=== PATIENT | female | born 1980 | race Asian ===

== ENCOUNTER 2016-11-19 17:00 | Emergency (ER) | payer OTHER ==
[~2016-11-19] VITALS: Ht 167.6 cm; Wt 74.4 kg
[~2016-11-19 17:00] MED LIST: IBUP600T OR; VICO5TAB OR
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
[2016-11-19] MEDS ORDERED: IBUP600T26 PO (19:13)
[2016-11-19] MEDS ORDERED: CYCL10TA PO (19:13)
[2016-11-19 19:20] VITALS: BP 173/96
== END 2016-11-19 19:35 | disposition home or self-care (01) ==
LOC: M ED 18:29
DX: S13.4XXA Sprain of ligaments of cervical spine, initial encounter (principal); V49.40XA Driver injured in collision with unspecified motor vehicles in traffic accident, initial encounter; Y92.89 Other specified places as the place of occurrence of the external cause; F17.200 Nicotine dependence, unspecified, uncomplicated

== ENCOUNTER 2016-12-04 12:46 | Emergency (ER) | payer OTHER ==
[~2016-12-04] VITALS: Ht 167.6 cm; Wt 73.5 kg
[~2016-12-04 12:46] MED LIST changes: +CYCL10TA PO; +IBUP600T26 PO
[2016-12-04 12:47] VITALS: BP 162/97
[2016-12-04] MEDS ORDERED: METHOCARBAMOL 500 MG TAB PO ONE (14:00)
[2016-12-04] MEDS ORDERED: IBUPROFEN 800 MG TAB PO ONE (14:00)
[2016-12-04] MEDS ORDERED: ROBA500T PO (14:03)
[2016-12-04] MEDS ORDERED: NORCOTAB PO (14:03)
== END 2016-12-04 14:54 | disposition home or self-care (01) ==
LOC: M ED 13:34
DX: S13.4XXA Sprain of ligaments of cervical spine, initial encounter (principal); V49.40XA Driver injured in collision with unspecified motor vehicles in traffic accident, initial encounter; Y92.410 Unspecified street and highway as the place of occurrence of the external cause; Y93.89 Activity, other specified; Y99.9 Unspecified external cause status

== ENCOUNTER → 2017-01-14 | Outpatient (CLI) | payer OTHER ==
[~2017-01-14] MED LIST changes: +NORCOTAB PO; +ROBA500T PO
--- NOTE | 2017-01-14 18:23 | REP ---
MR CERVICAL SPINE WITHOUT CONTRAST: HISTORY: Neck pain. A small central disc protrusion is present at the C3-4 level. There is minimal effacement of the thecal sac without spinal cord compression. The C3 neural foramina are patent. A small central disc protrusion is present the C4-5 level. There is minimal effacement of the thecal sac without spinal cord compression. The C4 neural foramina are patent. A disc bulge is present at the C5-6 level. There is minimal effacement of the thecal sac without spinal cord compression. The C5 neural foramina are patent. A disc bulge is present at the C6-7 level. There is minimal effacement of the thecal sac without spinal cord compression. The C6 neural foramina are patent. There is no other disc bulge or herniation. The remaining neural foramina are patent. The spinal cord is normal in signal intensity. Normal signal intensity is present in the cervical vertebral bodies. IMPRESSION: There is cervical spondylosis at the C3-4 through C6-7 levels without spinal cord compression. Signed by Jose Weldon MD 01/14/2017 06:31 P
== END ==
LOC: M RAD 16:03
PROVIDERS: ATTEND Nurse Practitioner Family
DX: M47.812 Spondylosis without myelopathy or radiculopathy, cervical region (principal); R20.2 Paresthesia of skin; M54.2 Cervicalgia

== ENCOUNTER 2017-02-10 12:59 | Emergency (ER) | payer OTHER ==
[~2017-02-10] VITALS: Ht 167.6 cm; Wt 74.8 kg
[2017-02-10 12:59] VITALS: BP 153/95
[2017-02-10] MEDS ORDERED: KETOROLAC 30 MG/ML VIAL (J1885) IV ONE (13:45)
[2017-02-10] MEDS ORDERED: ONDANSETRON 4MG/2ML VIAL (J2405) IV ONE (13:45)
[2017-02-10] MEDS ORDERED: NS 1,000 ML IV ONE (13:45)
--- NOTE | 2017-02-10 14:12 | REP ---
Clinical: Left flank pain. Findings: Lung bases are clear. Visualized heart and pericardium are normal. Liver, spleen, pancreas, gallbladder, bilateral adrenal glands and kidneys are normal. Specifically, there is no perinephric stranding, hydroureteronephrosis, intrarenal or obstructing ureteral calculi. The enteric system is without obstruction or acute inflammatory process. Normal terminal ileum and appendix identified in the right lower quadrant. Pelvis demonstrates collapsed bladder and age-appropriate uterus/adnexa. Small amount of free fluid is likely physiologic. No significant ascites. No free air. No obvious adenopathy. Musculoskeletal structures are intact. Impression: Normal noncontrast CT of the abdomen and pelvis. Signed by Vini Godfrey MD 02/10/2017 02:04 P
[2017-02-10 14:22] LABS: BASO % 0.4 % (0.0-1.0); EOS # 0.1 K/mm3 (0.0-0.50); EOS % 1.6 % (0.0-3.0); LARGE UNSTAINED CELL # 0.1 K/mm3 (0.0-0.4); LARGE UNSTAINED CELL % 2.6 % (0.0-4.0); LYMPH # 2.5 K/mm3 (1.5-4.5); LYMPH % 47.5 % (24.0-44.0); MEAN CORPUSCULAR HEMOGLOBIN 34.2 pg (27.0-33.0); MEAN CORPUSCULAR HGB CONC 33.1 g/dl (32.0-36.5); MEAN CORPUSCULAR VOLUME 103.3 fl (80.0-96.0); MONO # 0.2 K/mm3 (0.0-0.8); MONO % 3.9 % (0.0-5.0); NEUTROPHILS # 2.3 K/mm3 (1.8-7.7); PLATELET COUNT, AUTOMATED 250 k/mm3 (150-450); RED CELL DISTRIBUTION WIDTH 13.7 % (11.5-14.5); WHITE BLOOD COUNT 5.2 K/mm3 (4.0-10.0)
[2017-02-10 14:37] LABS: ALBUMIN 3.7 GM/DL (3.2-5.2); ALBUMIN/GLOBULIN RATIO 0.95 (1.00-1.93); ALKALINE PHOSPHATASE 58 U/L (45-117); ALT/SGPT 23 U/L (12-78); AMYLASE 71 U/L (25-115); ANION GAP 3 MEQ/L (8-16); AST/SGOT 12 U/L (15-37); BILIRUBIN,DIRECT < 0.1 MG/DL (0.0-0.2); BILIRUBIN,TOTAL 0.3 MG/DL (0.2-1.0); BLOOD UREA NITROGEN 8 MG/DL (7-18); CALCIUM LEVEL 8.7 MG/DL (8.5-10.1); CARBON DIOXIDE LEVEL 31 MEQ/L (21-32); CHLORIDE LEVEL 104 MEQ/L (98-107); CREATININE FOR GFR 0.74 MG/DL (0.55-1.02); GLOMERULAR FILTRATION RATE > 60.0 (>60); GLUCOSE, FASTING 75 MG/DL (70-105); POTASSIUM SERUM 3.3 MEQ/L (3.5-5.1); SODIUM LEVEL 138 MEQ/L (136-145); TOTAL PROTEIN 7.6 GM/DL (6.4-8.2)
[2017-02-10] MEDS ORDERED: NAPR500T PO (14:53)
[2017-02-10] MEDS ORDERED: ZOFR4TAB3 PO (14:53)
== END 2017-02-10 15:16 | disposition home or self-care (01) ==
LOC: M ED 13:39
DX: N20.1 Calculus of ureter (principal); F17.210 Nicotine dependence, cigarettes, uncomplicated

== ENCOUNTER → 2017-06-02 | Outpatient (REF) | payer OTHER ==
[~2017-06-02] MED LIST changes: +AUGM875T28 PO; +EXCETAB81 PO; +IBUP-1022 PO; -IBUP600T26 PO; +NAPR500T PO; +ZOFR4TAB3 PO
== END ==
LOC: M SFHCWAGY 15:47
PROVIDERS: ATTEND Nurse Practitioner Family
DX: Z12.4 Encounter for screening for malignant neoplasm of cervix (principal)

== ENCOUNTER → 2017-06-02 | Outpatient (REF) | payer OTHER | LOC: M SFHCWAGY 15:00 | PROVIDERS: ATTEND Nurse Practitioner Family | DX: Z11.3 Encounter for screening for infections with a predominantly sexual mode of transmission (principal) ==

== ENCOUNTER → 2017-07-12 | Outpatient (CLI) | payer OTHER ==
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
== END ==
LOC: M PAIN 10:15
PROVIDERS: ATTEND Nurse Practitioner Family
DX: G89.29 Other chronic pain (principal); M54.2 Cervicalgia; M79.1 Myalgia; F17.210 Nicotine dependence, cigarettes, uncomplicated; Z79.899 Other long term (current) drug therapy

== ENCOUNTER 2017-07-19 09:29 | Emergency (ER) | payer MEDICAID, OTHER ==
[2017-07-19] MEDS: KETOROLAC 60 MG/2 ML VIAL (J1885) IM (10:05)
[2017-07-19] MEDS: AUGMENTIN 875 MG TAB PO (10:53)
== END 2017-07-19 10:58 | disposition home or self-care (01) ==
LOC: M ED 09:29
DX: J01.10 Acute frontal sinusitis, unspecified (principal)
CPT/HCPCS: J1885

== ENCOUNTER → 2017-08-15 | Outpatient (CLI) | payer OTHER ==
[~2017-08-15] MED LIST changes: +BUPIVACAINE HCL 0.25% 10 ML VIAL As Ordered ONE; +BUPIVACAINE HCL 0.25% 30 ML VIAL As Ordered ONE; +TRIAMCINOLONE ACETONIDE SUSP 40 MG/ML VIAL (J3301) As Ordered ONE; +diazePAM 5 MG TAB As Ordered ONE; +oxyCODONE 5MG TAB As Ordered ONE
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
== END ==
LOC: M PAIN 15:00
PROVIDERS: ATTEND Anesthesiology
DX: G89.29 Other chronic pain (principal); M79.1 Myalgia; F17.210 Nicotine dependence, cigarettes, uncomplicated; Z79.899 Other long term (current) drug therapy
CPT/HCPCS: 20552; J3301

== ENCOUNTER → 2017-09-14 | Outpatient (CLI) | payer OTHER | LOC: M PAIN 14:45 | DX: M54.2 Cervicalgia (principal); M79.1 Myalgia | CPT/HCPCS: G0463 ==

== ENCOUNTER → 2017-10-05 | Outpatient (CLI) | payer OTHER ==
[~2017-10-05] MED LIST changes: -AUGM875T28 PO; +BUPIVACAINE HCL 0.25% 10 ML VIAL As Ordered; -BUPIVACAINE HCL 0.25% 10 ML VIAL As Ordered ONE; +BUPIVACAINE HCL 0.25% 30 ML VIAL As Ordered; -BUPIVACAINE HCL 0.25% 30 ML VIAL As Ordered ONE; -CYCL10TA PO; -EXCETAB81 PO; -IBUP-1022 PO; -IBUP600T OR; -NAPR500T PO; -NORCOTAB PO; -ROBA500T PO; +TRIAMCINOLONE ACETONIDE SUSP 40 MG/ML VIAL (J3301) As Ordered; -TRIAMCINOLONE ACETONIDE SUSP 40 MG/ML VIAL (J3301) As Ordered ONE; -VICO5TAB OR; -ZOFR4TAB3 PO; +diazePAM 5 MG TAB As Ordered; -diazePAM 5 MG TAB As Ordered ONE; +oxyCODONE 5MG TAB As Ordered; -oxyCODONE 5MG TAB As Ordered ONE
== END ==
LOC: M PAIN 15:00
DX: M54.2 Cervicalgia (principal); G89.29 Other chronic pain (principal); M54.6 Pain in thoracic spine; M25.511 Pain in right shoulder; M79.1 Myalgia; D57.3 Sickle-cell trait; F17.210 Nicotine dependence, cigarettes, uncomplicated; Z88.8 Allergy status to other drugs, medicaments and biological substances
CPT/HCPCS: J3301

== ENCOUNTER → 2017-10-21 | Outpatient (CLI) | payer OTHER | LOC: M PAIN 13:45 | DX: M54.2 Cervicalgia (principal); M79.1 Myalgia; G89.29 Other chronic pain; D50.9 Iron deficiency anemia, unspecified; D57.3 Sickle-cell trait; F17.210 Nicotine dependence, cigarettes, uncomplicated; Z88.8 Allergy status to other drugs, medicaments and biological substances | CPT/HCPCS: G0463 ==

== ENCOUNTER 2017-11-23 07:51 | Day surgery (SDC) | payer OTHER ==
[2017-11-23] MEDS ORDERED: LIDOCAINE 1% MDV 20ML VIAL SQ (08:00)
[2017-11-23] MEDS ORDERED: dexameTHASONE 4 MG/ML 1ML VIAL (J1100) As Ordered (08:54)
[2017-11-23] MEDS ORDERED: PROPOFOL 200 MG/20 ML VIAL As Ordered (08:54)
[2017-11-23] MEDS ORDERED: ONDANSETRON 4MG/2ML VIAL (J2405) As Ordered (08:54)
[2017-11-23] MEDS ORDERED: LIDOCAINE 2% INJ 100 MG/5 ML SDV (FOR ANES.) As Ordered (08:54)
[2017-11-23] MEDS ORDERED: MIDAZOLAM INJ 2 MG/2 ML VIAL (J2250) As Ordered (08:55)
[2017-11-23] MEDS ORDERED: fentaNYL 100 MCG/2 ML INJECTION (J3010) As Ordered (08:55)
[2017-11-23] MEDS: LR 1,000 ML IV (09:05)
[2017-11-23 09:13] LABS: CONTROL LINE UCG INT CTR LINE PRESENT; URINE PREG TEST NEGATIVE (NEGATIVE)
[2017-11-23] MEDS: BUPIVACAINE HCL 0.5% 10 ML VIAL As Ordered ×2 (09:29→09:57)
[2017-11-23] MEDS: LIDOCAINE 1% MDV 20ML VIAL As Ordered ×2 (09:57→10:05)
[2017-11-23] MEDS ORDERED: PHENYLephrine HCL 500 MCG/5 ML (100MCG/ML) SYRINGE (J2370) As Ordered (10:39)
[2017-11-23] MEDS: dexameTHASONE 4 MG/ML 1ML VIAL (J1100) As Ordered (11:38)
[2017-11-23] MEDS ORDERED: MEPERIDINE INJ 25 MG/ML VIAL (J2175) As Ordered (11:52)
[2017-11-23] MEDS: MEPERIDINE INJ 25 MG/ML VIAL (J2175) IV ×2 (11:58→12:08)
[2017-11-23] MEDS ORDERED: HYDROmorphone HCL 1 MG/ML SYRINGE (J1170) As Ordered (12:13)
[2017-11-23] MEDS: HYDROmorphone HCL 1 MG/ML SYRINGE (J1170) IV ×3 (12:20→12:50)
[2017-11-23] MEDS ORDERED: fentaNYL 100 MCG/2 ML INJECTION (J3010) IV (12:30)
[2017-11-23] MEDS ORDERED: ONDANSETRON 4MG/2ML VIAL (J2405) IV (12:30)
[2017-11-23] MEDS ORDERED: LR 1,000 ML IV (12:30)
== END 2017-11-23 14:34 | disposition home or self-care (01) ==
LOC: M SDC 07:51
DX: M21.621 Bunionette of right foot (principal); M21.622 Bunionette of left foot; M20.41 Other hammer toe(s) (acquired), right foot; L90.5 Scar conditions and fibrosis of skin; M54.2 Cervicalgia; R51 Headache; T84.84XA Pain due to internal orthopedic prosthetic devices, implants and grafts, initial encounter; X58.XXXA Exposure to other specified factors, initial encounter; Y92.89 Other specified places as the place of occurrence of the external cause; Y93.89 Activity, other specified; Y99.8 Other external cause status
CPT/HCPCS: 28312

== ENCOUNTER → 2018-01-26 | Outpatient (CLI) | payer OTHER | LOC: M PAIN 14:30 | DX: M54.2 Cervicalgia (principal); M79.1 Myalgia; F17.210 Nicotine dependence, cigarettes, uncomplicated; Z79.899 Other long term (current) drug therapy; Z88.8 Allergy status to other drugs, medicaments and biological substances | CPT/HCPCS: G0463 ==

== ENCOUNTER → 2018-04-05 | Outpatient (CLI) | payer OTHER | LOC: M PAIN 09:30 | DX: M54.2 Cervicalgia (principal); M79.1 Myalgia; F17.210 Nicotine dependence, cigarettes, uncomplicated; F41.0 Panic disorder [episodic paroxysmal anxiety]; Z88.8 Allergy status to other drugs, medicaments and biological substances | CPT/HCPCS: G0463 ==

== ENCOUNTER → 2018-05-10 | Outpatient (CLI) | payer OTHER ==
[2018-05-10 11:44] LABS: BASO % 0.4 % (0.0-1.0); EOS # 0.1 10^3/uL (0.0-0.50); EOS % 1.6 % (0.0-3.0); HEMATOCRIT 37.6 % (36.0-47.0); HEMOGLOBIN 12.4 g/dl (12.0-15.5); IMMATURE GRANULOCYTE % 0.2 % (0-3.0); LYMPH # 2.3 10^3/uL (1.5-4.5); LYMPH % 48.1 % (24.0-44.0); MONO # 0.2 10^3/uL (0.0-0.8); MONO % 4.9 % (0.0-5.0); NEUTROPHILS # 2.2 10^3/uL (1.8-7.7); NEUTROPHILS % 44.8 % (36.0-66.0); PLATELET COUNT, AUTOMATED 238 10^3/uL (150-450); RED BLOOD COUNT 3.65 10^6/uL (4.00-5.40); RED CELL DISTRIBUTION WIDTH 14.5 % (11.5-14.5); WHITE BLOOD COUNT 4.9 10^3/uL (4.0-10.0)
[2018-05-10 12:34] LABS: ALBUMIN 3.9 GM/DL (3.2-5.2); ALBUMIN/GLOBULIN RATIO 0.98 (1.00-1.93); ALKALINE PHOSPHATASE 56 U/L (45-117); ALT/SGPT 20 U/L (12-78); ANION GAP 7 MEQ/L (8-16); AST/SGOT 14 U/L (7-37); BILIRUBIN,TOTAL 0.3 MG/DL (0.2-1.0); BLOOD UREA NITROGEN 11 MG/DL (7-18); CALCIUM LEVEL 8.8 MG/DL (8.5-10.1); CARBON DIOXIDE LEVEL 26 MEQ/L (21-32); CHLORIDE LEVEL 107 MEQ/L (98-107); CREATININE FOR GFR 0.74 MG/DL (0.55-1.30); GLOMERULAR FILTRATION RATE > 60.0 (>60); GLUCOSE, FASTING 109 MG/DL (70-100); POTASSIUM SERUM 4.1 MEQ/L (3.5-5.1); SODIUM LEVEL 140 MEQ/L (136-145); THYROID STIMULATING HORMONE 0.343 uIU/ML (0.358-3.740); TOTAL PROTEIN 7.9 GM/DL (6.4-8.2)
[2018-05-10 15:15] LABS: ESTIMATED AVERAGE GLUCOSE 94 MG/DL (60-110); HEMOGLOBIN A1c 4.9 %
== END ==
LOC: M LAB 11:07
DX: R55 Syncope and collapse (principal)
CPT/HCPCS: 93005

== ENCOUNTER → 2018-05-23 | Outpatient (CLI) | payer OTHER | LOC: M PAIN 09:30 | DX: M54.2 Cervicalgia (principal); M79.1 Myalgia; F17.200 Nicotine dependence, unspecified, uncomplicated; Z79.899 Other long term (current) drug therapy; Z88.8 Allergy status to other drugs, medicaments and biological substances | CPT/HCPCS: G0463 ==

== ENCOUNTER → 2018-07-20 | Outpatient (REF) | payer OTHER | LOC: M SFHCWAGY 14:48 | DX: Z12.4 Encounter for screening for malignant neoplasm of cervix (principal) ==

== ENCOUNTER → 2018-08-15 | Outpatient (CLI) | payer OTHER | LOC: M PAIN 11:00 | DX: M60.9 Myositis, unspecified (principal); M54.2 Cervicalgia; G89.29 Other chronic pain; D57.3 Sickle-cell trait; Z79.899 Other long term (current) drug therapy; Z86.2 Personal history of diseases of the blood and blood-forming organs and certain disorders involving the immune mechanism | CPT/HCPCS: G0463 ==

== ENCOUNTER → 2018-10-23 | Outpatient (CLI) | payer OTHER ==
[~2018-10-23] MED LIST changes: +AUGM875T28 PO; -BUPIVACAINE HCL 0.25% 10 ML VIAL As Ordered; -BUPIVACAINE HCL 0.25% 30 ML VIAL As Ordered; +CYCL10TA PO; +EXCETAB81 PO; +GABA-1171 PO; +HYDR-3713 PO; +IBUP-1022 PO; +IBUP200C25 PO; +IBUP600T OR; +NAPR-50 PO; +NORCOTAB PO; +ROBA500T PO; -TRIAMCINOLONE ACETONIDE SUSP 40 MG/ML VIAL (J3301) As Ordered; +VICO5TAB OR; +ZOFR4TAB14 PO; -diazePAM 5 MG TAB As Ordered; -oxyCODONE 5MG TAB As Ordered
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
== END ==
LOC: M PAIN 11:30
PROVIDERS: ATTEND Nurse Practitioner Family
DX: M60.9 Myositis, unspecified (principal); M54.2 Cervicalgia; D50.9 Iron deficiency anemia, unspecified; D57.3 Sickle-cell trait; F17.210 Nicotine dependence, cigarettes, uncomplicated; Z79.899 Other long term (current) drug therapy

== ENCOUNTER → 2018-11-27 | Outpatient (REF) | payer OTHER ==
[2018-11-27 13:19] LABS: BASO % 0.5 % (0.0-1.0); EOS # 0.1 10^3/uL (0.0-0.50); EOS % 1.7 % (0.0-3.0); HEMATOCRIT 37.9 % (36.0-47.0); HEMOGLOBIN 12.4 g/dl (12.0-15.5); LYMPH # 2.2 10^3/uL (1.5-4.5); LYMPH % 35.9 % (24.0-44.0); MEAN CORPUSCULAR HEMOGLOBIN 33.8 pg (27.0-33.0); MEAN CORPUSCULAR HGB CONC 32.7 g/dl (32.0-36.5); MEAN CORPUSCULAR VOLUME 103.3 fl (80.0-96.0); MONO # 0.3 10^3/uL (0.0-0.8); MONO % 4.7 % (0.0-5.0); NEUTROPHILS # 3.4 10^3/uL (1.8-7.7); PLATELET COUNT, AUTOMATED 291 10^3/uL (150-450); RED BLOOD COUNT 3.67 10^6/uL (4.00-5.40)
[2018-11-27 13:29] LABS: INR 0.91; PROTHROMBIN TIME 12.4 SECONDS (12.1-14.4)
[2018-11-27 13:47] LABS: ALBUMIN 4.2 GM/DL (3.2-5.2); ALT/SGPT 35 U/L (12-78); BILIRUBIN,TOTAL 0.4 MG/DL (0.2-1.0); BLOOD UREA NITROGEN 11 MG/DL (7-18); CALCIUM LEVEL 8.8 MG/DL (8.5-10.1); CARBON DIOXIDE LEVEL 31 MEQ/L (21-32); CHLORIDE LEVEL 106 MEQ/L (98-107); GLOMERULAR FILTRATION RATE > 60.0 (>60); GLUCOSE, FASTING 98 MG/DL (70-100); POTASSIUM SERUM 4.1 MEQ/L (3.5-5.1); SODIUM LEVEL 142 MEQ/L (136-145); TOTAL PROTEIN 7.9 GM/DL (6.4-8.2)
[2018-11-27 15:58] LABS: HEMOGLOBIN A1c 4.7 %
== END ==
LOC: M LAB REF 12:43
PROVIDERS: ATTEND Nurse Practitioner Adult Health
DX: Z01.818 Encounter for other preprocedural examination (principal)

== ENCOUNTER 2018-12-04 07:32 | Day surgery (SDC) | payer OTHER ==
[~2018-12-04] VITALS: Ht 165.1 cm; Wt 71.0 kg
[2018-12-04] MEDS ORDERED: ROCURONIUM BROMIDE 50 MG/5 ML VIAL As Ordered ONE ×2 (07:49→10:02)
[2018-12-04] MEDS ORDERED: PROPOFOL 200 MG/20 ML VIAL As Ordered ONE (07:49)
[2018-12-04] MEDS ORDERED: LIDOCAINE 2% INJ 100 MG/5 ML SDV (FOR ANES.) As Ordered ONE (07:49)
[2018-12-04] MEDS ORDERED: MIDAZOLAM INJ 2 MG/2 ML VIAL (J2250) As Ordered ONE (07:49)
[2018-12-04] MEDS ORDERED: fentaNYL 250 MCG/5 ML INJECTION (J3010) As Ordered ONE (07:49)
[2018-12-04] MEDS ORDERED: ceFAZolin 2 GM/D5W 50 ML IV BAG (J0690 PER 500MG) As Ordered ONE (07:51)
[2018-12-04] MEDS ORDERED: BACITRACIN PWD 50,000 UNITS VIAL As Ordered ONE (08:20)
[2018-12-04] MEDS ORDERED: dexameTHASONE 4 MG/ML 1ML VIAL (J1100) As Ordered ONE ×2 (09:14→09:15)
[2018-12-04] MEDS ORDERED: HYDROmorphone HCL 2 MG/ML 1ML VIAL (J1170) As Ordered ONE (09:19)
[2018-12-04] MEDS ORDERED: LIDOCAINE 1% SDV INJ 30 ML VIAL As Ordered ONE (09:32)
[2018-12-04] MEDS ORDERED: BUPIVACAINE HCL 0.5% 30 ML VIAL As Ordered ONE (09:33)
[2018-12-04] MEDS ORDERED: ONDANSETRON 4MG/2ML VIAL (J2405) As Ordered ONE (09:35)
[2018-12-04] MEDS ORDERED: METOCLOPRAMIDE INJ 10MG/2ML VIAL (J2765) As Ordered ONE (09:35)
[2018-12-04] MEDS ORDERED: ESMOLOL INJ 100MG/10ML VIAL As Ordered ONE (09:42)
[2018-12-04] MEDS ORDERED: GLYCOPYRROLATE INJ 0.2 MG/ML 2 ML VIAL As Ordered ONE (10:49)
[2018-12-04] MEDS ORDERED: NEOSTIGMINE 10 MG/10 ML VIAL (J2710) As Ordered ONE (10:49)
[2018-12-04] MEDS ORDERED: KETOROLAC 60 MG/2 ML VIAL (J1885) As Ordered ONE (10:55)
[2018-12-04] MEDS ORDERED: ePHEDrine SULFATE 25 MG/5 ML(5MG/ML) SYRINGE As Ordered ONE (11:26)
[2018-12-04] MEDS ORDERED: PHENYLephrine HCL 500 MCG/5 ML (100MCG/ML) SYRINGE (J2370) As Ordered ONE (11:26)
[2018-12-04] MEDS ORDERED: ACETAMINOPHEN 1000MG 100ML IV BTL (OFIRMEV) (J0131 PER 10MG) As Ordered ONE (11:50)
--- NOTE | 2018-12-04 12:25 | POST-OPPD ---
Postoperative Procedure Note Date Of Procedure: Dec 04, 2018 PREOPERATIVE DIAGNOSIS: Symptomatic macromastia POSTOPERATIVE DIAGNOSIS: same FINDINGS: large pendulous breasts PROCEDURE: Bilateral breast reduction SURGEON: Dr Roper ANESTHESIA: general SPECIMENS: Right breast 441 gm, Left breast 452 gm ESTIMATED BLOOD LOSS: 50cc REPLACED: none DRAINS: 10 mm JOHN drains x 2 COMPLICATIONS: none POSTOPERATIVE CONDITION: stable JUJU ROPER DO Dec 04, 2018 12:25
[2018-12-04] MEDS ORDERED: ONDANSETRON 4MG/2ML VIAL (J2405) IV PRN ×2 (13:00)
[2018-12-04] MEDS ORDERED: LR 1,000 ML IV SCH (13:00)
[2018-12-04] MEDS ORDERED: fentaNYL 100 MCG/2 ML INJECTION (J3010) IV PRN (13:00)
[2018-12-04] MEDS ORDERED: MORPHINE 4 MG/ML 1ML VIAL/SYRINGE (J2270) IV PRN (13:00)
[2018-12-04] MEDS ORDERED: METOCLOPRAMIDE INJ 10MG/2ML VIAL (J2765) IV PRN (13:00)
[2018-12-04 15:35] VITALS: BP 156/90
[2018-12-04 16:05] VITALS: BP 128/85
[2018-12-04] MEDS: ceFAZolin SOD 1 GM in D5W MINI-BAG PLUS 50 ML IV SCH (16:29)
[2018-12-04] MEDS: LR 1,000 ML IV SCH (16:29)
[2018-12-04 16:35] VITALS: BP 157/98
[2018-12-04] MEDS: PERCOCET 5MG/325MG TAB PO PRN ×2 (17:04→21:02)
[2018-12-04 17:35] VITALS: BP 146/86
[2018-12-04 22:00] VITALS: BP 132/84
[2018-12-05] MEDS: ceFAZolin SOD 1 GM in D5W MINI-BAG PLUS 50 ML IV SCH ×2 (00:20→09:00)
[2018-12-05 02:00] VITALS: BP 131/73
[2018-12-05] MEDS: PERCOCET 5MG/325MG TAB PO PRN ×2 (02:30→10:29)
[2018-12-05 06:00] VITALS: BP 120/75
--- NOTE | 2018-12-05 07:53 | IPNPDOC ---
Subjective General Date/Time Seen The patient was seen on 12/05/18 at 07:50. Subject Chief Complaint/History The patient is a 38-year-old female admitted with a reason for visit of Bilateral Breast Hypertrophy. BBR pod 1. Doing well. Pain controlled. Current Medications Current Medications Current Medications Cefazolin Sodium 1 gm/Dextrose 50 ml @ 100 mls/hr Q8H IV Last administered on 12/05/18at 00:20; Start 12/04/18 at 17:00 Fentanyl Citrate (Sublimaze) 25 mcg Q5MP PRN IV MODERATE PAIN (PS 4-7); Start 12/04/18 at 13:00; Stop 12/04/18 at 14:00; Status DC Lactated Ringer's 1,000 ml @ 50 mls/hr Q20H IV Last administered on 12/04/18at 16:29; Start 12/04/18 at 13:00 Lactated Ringer's 1,000 ml @ 100 mls/hr Q10H IV Last administered on 12/04/18at 12:30; Start 12/04/18 at 13:00; Stop 12/04/18 at 14:00; Status DC Metoclopramide HCl (REGLAN INJection) 10 mg Q6HP PRN IV NAUSEA OR VOMITING; Start 12/04/18 at 13:00; Stop 12/04/18 at 14:00; Status DC Morphine Sulfate (Morphine Sulfate Inj) 4 mg Q4H PRN IV SEVERE PAIN (PS 8-10); Start 12/04/18 at 13:00 Ondansetron HCl (ZOFRAN INJection) 4 mg Q4HP PRN IV NAUSEA OR VOMITING; Start 12/04/18 at 13:00; Stop 12/04/18 at 14:00; Status DC Ondansetron HCl (ZOFRAN INJection) 4 mg Q6H PRN IV NAUSEA; Start 12/04/18 at 13:00 Oxycodone/ Acetaminophen (Percocet 5mg/ 325mg Tablet) 2 tab Q4HP PRN PO MODERATE PAIN (PS 5-7) Last administered on 12/05/18at 02:30; Start 12/04/18 at 13:00 Allergies Coded Allergies: No Known Drug Allergy (Verified Allergy, Unknown, 11/22/18) Objective Physical Examination Examination GENERAL APPEARANCE:Patient seen, laying in bed, awake, alert, and oriented. Comfortable, in no acute distress. SKIN: Warm and moist. Breast Incisions intact, NAC viable, sensate. JOHN drains serosangouins drainage. Minimal. Minimal ecchymosis. LUNGS: Clear to auscultation bilaterally. No wheezing appreciated. HEART: [No chest wall abnormalities. Regular rate and rhythm with no murmurs appreciated]. Vital Signs Vital Signs Date Time Temp Pulse Resp B/P (MAP) Pulse Ox O2 Delivery O2 Flow Rate FiO2 12/05/18 06:00 97.6 88 20 120/75 (90) 100 12/04/18 12:40 2 I&Os I&O- Last 24 Hours up to 6 AM 12/05/18 06:00 Intake Total 3590 ml Output Total 85 ml Balance 3505 ml Impression Symptomatic macromastia. S/p BBR Doing well. Stable for discharge Monitor JOHN drains at home f/up plastic surgery Tuesday. Plan / VTE VTE Prophylaxis Ordered?: Yes JUJU ROPER DO Dec 05, 2018 07:53
[2018-12-05] MEDS ORDERED: PERCOCET PO (07:56)
[2018-12-05] MEDS: LR 1,000 ML IV SCH (09:00)
--- NOTE | 2018-12-06 09:43 | RO ---
DATE OF OPERATION: 12/04/2018 PREOPERATIVE DIAGNOSIS: Symptomatic macromastia. POSTOPERATIVE DIAGNOSIS: Symptomatic macromastia. PROCEDURE: Bilateral breast reduction. ATTENDING SURGEON: Dr. Anne-Marie Olmedo ANESTHESIA: General. SPECIMENS SENT: Right breast 441 grams. Left breast 452 grams. BLOOD LOSS: 50 mL. No replacement needed. DRAINS: 10 mm Kyle-Zacarias drains times two. DESCRIPTION OF PROCEDURE: This is a 38-year-old female presented to our office complaining of very significant left upper back pain related to her large breast size. She currently wears 36DD bra. She has significant heavy breasts and ptosis grade 3. Patient is a good candidate for breast reduction since she failed all her medical treatment. All the risks and benefits and alternatives discussed with the patient preoperatively, and she is ready to proceed. On the day of surgery, informed consent was confirmed for the patient. She was marked in the upright position in holding area. Her measurements are as follows: From sternal notch to the left nipple-areolar complex is 30, to the right 31.5 cm in length. The new nipple-areolar complex is going to be at 21 cm renetta. After markings were completed, patient also has a tattoo on her right breast which is going to be in the way of her incisions and it is actually going to be completely excised together with part of the breast. Patient is okay with it and confirming it that she is agreeing to remove that tattoo. Patient was brought into the operating room, placed in supine position. Compression stockings placed on the lower calves, and preoperative antibiotics were given. She was prepped and draped in usual sterile fashion. Started the procedure on the right side. Nipple-areolar complex was outlined at 42 mm in diameter, and our dissection was started using #10 blade. Dissection of the breast was done according to the superior medial pedicle. Using electrocautery, hemostasis obtained as we went along. The inferior lateral portion of the breast was removed and sent to pathology. Then the pedicle was de-epithelialized using Ledbetter scissors, and the wound was irrigated with Bacitracin irrigation and hemostasis was obtained. The breast was then repositioned. The pedicle was turned superiorly to its new position at 21 cm from the sternal notch. The breast mound was recreated using #0 Vicryl sutures, and then we started closing our pillars with #3-0 Monocryl sutures, realigning the vertical scar, which was 7.5 cm in length. Excess tissue inferiorly was outlined and resected, creating the horizontal scar. 10 mm Kyle-Zacarias drain was placed through the lateral portion of that scar, and then it was closed with interrupted #3-0 Monocryl sutures as well. Nipple-areolar complex was in good condition. Vasculature was completely intact, and it was set in place with layered interrupted suturing with #3-0 Monocryl, #4-0 Monocryl, and #5-0 plain. Total removal on the right side was 441 grams. Then we turned our attention to the left side. Nipple-areolar complex was outlined at 42 mm in diameter and the dissection started using #10 blade and then electrocautery. The inferior lateral portion of the breast was resected, sent to pathology. The wound was irrigated with Bacitracin irrigation solution. The pedicle was de-epithelialized using Ledbetter scissors and then hemostasis obtained. The pedicle was then turned superiorly to its new position with the nipple-areolar complex being 21 cm from the sternal notch. The breast mound was recreated using #0 Vicryl sutures, and then the pillars were closed with interrupted #3-0 Monocryl sutures. The vertical scar was 7.5 cm. Excess skin tissue and fatty tissue was outlined, measured, and resected, creating the horizontal scar. 10 mm Kyle-Zacarias drain was placed through the lateral portion of the horizontal scar. Continued closure was done with #3-0 Monocryl sutures, completing the horizontal scar closure as well as the vertical. Nipple-areolar complex was set in place with interrupted #3-0 Monocryl sutures, #4-0 Monocryl sutures, and #5-0 plain sutures. Good symmetry was achieved. Steri-Strips and a Xeroform placed as a dressing with a bulky dressing and a surgical bra. Patient was extubated in the operating room without any problems, transferred to recovery room in stable condition. Total weight on the left side was 452 grams. MTDD
== END 2018-12-05 11:25 | disposition home or self-care (01) ==
LOC: M SDC 07:32 → M MSPAV 15:32 → M SDC 12-05 11:25
PROVIDERS: ATTEND Plastic Surgery Surgery of the Hand
DX: N62 Hypertrophy of breast (principal); M54.9 Dorsalgia, unspecified; Z98.51 Tubal ligation status; Z72.0 Tobacco use
CPT/HCPCS: 19318; 88305; J0131; J0690; J1100; J1170; J1885; J2250; J2370; J2405; J2710; J2765; J3010

== ENCOUNTER → 2019-05-03 | Outpatient (CLI) | payer OTHER ==
[~2019-05-03] MED LIST changes: +HYDR-3715 PO; -NAPR-50 PO; +NAPR-837 PO; -NORCOTAB PO; +PERCOCET PO
--- NOTE | 2019-05-23 03:29 | ECWPNPC ---
PATIENT NAME: VLADISLAV HILL : 1980 GENDER: FEMALE VISIT DATE: 05/03/2019 DISCHARGE DATE: 05/03/19 08 VISIT LOCKED DATE TIME: PHYSICIAN: NAT DE LA CRUZ RESOURCE: NAT DE LA CRUZ DISCLAIMER : THIS IS A VISIT SUMMARY EXTRACTED FROM THE [employer] CHART. IT IS NOT A COPY OF THE [employer] PROGRESS NOTE. MTDGris
== END ==
LOC: M PAIN 11:15
PROVIDERS: ATTEND Nurse Practitioner Family
DX: M79.18 Myalgia, other site (principal); Z87.891 Personal history of nicotine dependence; Z79.899 Other long term (current) drug therapy

== ENCOUNTER → 2019-06-11 | Outpatient (CLI) | payer OTHER | LOC: M PAIN 10:45 | PROVIDERS: ATTEND Anesthesiology | DX: M79.18 Myalgia, other site (principal); Z53.20 Procedure and treatment not carried out because of patient's decision for unspecified reasons ==

== ENCOUNTER → 2019-07-16 | Outpatient (CLI) | payer OTHER ==
[~2019-07-16] MED LIST changes: +BUPIVACAINE HCL 0.25% 10 ML VIAL As Ordered ONE; +BUPIVACAINE HCL 0.25% 30 ML VIAL As Ordered ONE; +TRIAMCINOLONE ACETONIDE SUSP 40 MG/ML VIAL (J3301) As Ordered ONE; +diazePAM 5 MG TAB As Ordered ONE; +oxyCODONE 5MG TAB As Ordered ONE
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
== END ==
LOC: M PAIN 11:30
PROVIDERS: ATTEND Anesthesiology
DX: M79.18 Myalgia, other site (principal); D50.9 Iron deficiency anemia, unspecified; D57.3 Sickle-cell trait; F17.210 Nicotine dependence, cigarettes, uncomplicated; Z79.899 Other long term (current) drug therapy
CPT/HCPCS: 20552; J3301

== ENCOUNTER → 2019-07-23 | Outpatient (REF) | payer OTHER ==
[~2019-07-23] MED LIST changes: -BUPIVACAINE HCL 0.25% 10 ML VIAL As Ordered ONE; -BUPIVACAINE HCL 0.25% 30 ML VIAL As Ordered ONE; -TRIAMCINOLONE ACETONIDE SUSP 40 MG/ML VIAL (J3301) As Ordered ONE; -diazePAM 5 MG TAB As Ordered ONE; -oxyCODONE 5MG TAB As Ordered ONE
== END ==
LOC: M SFHCWAGY 10:46
PROVIDERS: ATTEND Nurse Practitioner Family
DX: Z12.4 Encounter for screening for malignant neoplasm of cervix (principal)

== ENCOUNTER → 2019-08-02 | Outpatient (CLI) | payer OTHER ==
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
== END ==
LOC: M PAIN 10:15
PROVIDERS: ATTEND Nurse Practitioner Family
DX: M79.18 Myalgia, other site (principal); F17.210 Nicotine dependence, cigarettes, uncomplicated; Z79.899 Other long term (current) drug therapy

== ENCOUNTER → 2019-08-24 | Outpatient (CLI) | payer OTHER ==
--- NOTE | 2019-08-24 13:04 | REP ---
MRI cervical spine: 08/24/2019. Indication: Neck pain. Comparison: 01/14/2017. Technique: Multiplanar short and long TR sequences of the cervical spine were obtained without IV Gadolinium. Findings: Disc dessication is present throughout with the exception of C7/T1. There is mild straightening of the cervical lordosis. No worrisome marrow or cord signal abnormalities are present. There are no focal disc herniations or areas of significant spinal canal / neural foraminal narrowing. The vertebral artery flow voids are unremarkable with left-sided dominance noted. Impression: No focal disc herniations or areas of significant spinal canal / neural foraminal narrowing. No nerve root impingement. Electronically Signed by Lex Lozoya DO 08/24/2019 12:56 P
== END ==
LOC: M RAD 08:01
PROVIDERS: ATTEND Physician Assistant
DX: M54.2 Cervicalgia (principal)

== ENCOUNTER → 2019-11-27 | Outpatient (CLI) | payer OTHER ==
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
== END ==
LOC: M PAIN 11:00
PROVIDERS: ATTEND Nurse Practitioner Family
DX: M79.18 Myalgia, other site (principal)

== ENCOUNTER → 2020-01-03 | Outpatient (CLI) | payer OTHER ==
[~2020-01-03] MED LIST changes: +CYCL-707 PO; -CYCL10TA PO
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
== END ==
LOC: M PAIN 10:30
PROVIDERS: ATTEND Anesthesiology
DX: M54.2 Cervicalgia (principal); M79.18 Myalgia, other site; F17.210 Nicotine dependence, cigarettes, uncomplicated; Z79.899 Other long term (current) drug therapy

== ENCOUNTER → 2020-03-16 | Outpatient (CLI) | payer OTHER | LOC: M LABSMTC 09:08 | PROVIDERS: ATTEND Anesthesiology | DX: Z01.818 Encounter for other preprocedural examination (principal); Z11.59 Encounter for screening for other viral diseases | CPT/HCPCS: C9803; U0003 ==

== ENCOUNTER → 2020-03-19 | Outpatient (CLI) | payer OTHER ==
[~2020-03-19] MED LIST changes: +BUPIVACAINE HCL 0.25% 10ML VIAL As Ordered ONE; +BUPIVACAINE HCL 0.25% 30ML VIAL As Ordered ONE; +diazePAM 5 MG TAB As Ordered ONE; +oxyCODONE 5MG TAB As Ordered ONE
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
== END ==
LOC: M PAIN 11:45
PROVIDERS: ATTEND Anesthesiology
DX: M79.18 Myalgia, other site (principal)

== ENCOUNTER → 2020-05-21 | Outpatient (CLI) | payer OTHER ==
[~2020-05-21] MED LIST changes: -BUPIVACAINE HCL 0.25% 10ML VIAL As Ordered ONE; -BUPIVACAINE HCL 0.25% 30ML VIAL As Ordered ONE; -diazePAM 5 MG TAB As Ordered ONE; -oxyCODONE 5MG TAB As Ordered ONE
== END ==
LOC: M PAIN 12:17
PROVIDERS: ATTEND Nurse Practitioner Family
DX: M79.7 Fibromyalgia (principal)

== ENCOUNTER → 2020-07-24 | Outpatient (CLI) | payer OTHER | LOC: M PAIN 14:15 | PROVIDERS: ATTEND Nurse Practitioner Family | DX: Z53.21 Procedure and treatment not carried out due to patient leaving prior to being seen by health care provider (principal) ==

== ENCOUNTER → 2020-10-30 | Outpatient (CLI) | payer OTHER | LOC: M LABSMTC 12:48 | PROVIDERS: ATTEND Anesthesiology | DX: Z01.812 Encounter for preprocedural laboratory examination (principal); Z20.822 Contact with and (suspected) exposure to COVID-19 ==

== ENCOUNTER → 2020-11-04 | Outpatient (CLI) | payer OTHER ==
[~2020-11-04] MED LIST changes: +BUPIVACAINE HCL 0.25% 10ML VIAL As Ordered ONE; +BUPIVACAINE HCL 0.25% 30ML VIAL As Ordered ONE; +TRIAMCINOLONE ACETONIDE SUSP 40 MG/ML VIAL (J3301) As Ordered ONE; +diazePAM 5MG TABLET As Ordered ONE; +oxyCODONE 5MG TAB As Ordered ONE
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
== END ==
LOC: M PAIN 08:30
PROVIDERS: ATTEND Anesthesiology
DX: M79.18 Myalgia, other site (principal); D50.9 Iron deficiency anemia, unspecified; F17.210 Nicotine dependence, cigarettes, uncomplicated
CPT/HCPCS: 20553; J3301

== ENCOUNTER → 2020-11-25 | Outpatient (CLI) | payer OTHER ==
[~2020-11-25] MED LIST changes: -BUPIVACAINE HCL 0.25% 10ML VIAL As Ordered ONE; -BUPIVACAINE HCL 0.25% 30ML VIAL As Ordered ONE; -TRIAMCINOLONE ACETONIDE SUSP 40 MG/ML VIAL (J3301) As Ordered ONE; -diazePAM 5MG TABLET As Ordered ONE; -oxyCODONE 5MG TAB As Ordered ONE
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
== END ==
LOC: M PAIN 11:00
PROVIDERS: ATTEND Nurse Practitioner Family
DX: G89.29 Other chronic pain (principal); M79.18 Myalgia, other site; F17.210 Nicotine dependence, cigarettes, uncomplicated; D50.9 Iron deficiency anemia, unspecified; Z79.899 Other long term (current) drug therapy

== ENCOUNTER 2021-04-04 12:26 | Emergency (ER) | payer OTHER ==
[~2021-04-04] VITALS: Ht 167.6 cm; Wt 66.5 kg
[2021-04-04 13:53] LABS: BASO # 0.1 10^3/uL (0.0-0.2); BASO % 0.9 % (0.0-1.0); EOS # 0.1 10^3/uL (0.0-0.5); HEMATOCRIT 40.4 % (36.0-47.0); HEMOGLOBIN 13.4 g/dl (12.0-15.5); LYMPH # 2.8 10^3/uL (1.5-5.0); LYMPH % 50.3 % (24.0-44.0); MEAN CORPUSCULAR HEMOGLOBIN 33.4 pg (27.0-33.0); MEAN CORPUSCULAR HGB CONC 33.2 g/dl (32.0-36.5); MEAN CORPUSCULAR VOLUME 100.7 fl (80.0-96.0); MONO # 0.3 10^3/uL (0.0-0.8); MONO % 4.6 % (2.0-8.0); NEUTROPHILS # 2.4 10^3/uL (1.5-8.5); PLATELET COUNT, AUTOMATED 259 10^3/uL (150-450); RED BLOOD COUNT 4.01 10^6/uL (4.00-5.40); WHITE BLOOD COUNT 5.6 10^3/uL (4.0-10.0)
[2021-04-04 14:28] LABS: ALBUMIN 4.9 GM/DL (3.2-5.2); BILIRUBIN,DIRECT 0.1 MG/DL (0.0-0.2); BILIRUBIN,TOTAL 0.7 MG/DL (0.2-1.0); TOTAL PROTEIN 9.2 GM/DL (6.4-8.2)
[2021-04-04] MEDS ORDERED: GI COCKTAIL 50ML BTL(HYOSCYAMINE/MAALOX/LIDOCAINE VISCOUS)(1:3:1) PO ONE (14:40)
[2021-04-04] MEDS ORDERED: ONDA4TAB6 PO (15:14)
[2021-04-04] MEDS ORDERED: PEPC1TAB5 PO (15:14)
[2021-04-04 15:19] VITALS: BP 159/87
== END 2021-04-04 15:47 | disposition home or self-care (01) ==
LOC: M ED 12:26
DX: K29.00 Acute gastritis without bleeding (principal); R11.2 Nausea with vomiting, unspecified

== ENCOUNTER → 2022-01-29 | Outpatient (REF) | payer OTHER ==
[~2022-01-29] MED LIST changes: +ONDA4TAB6 PO; +PEPC1TAB5 PO
== END ==
LOC: M SFHCWAGY 18:48
PROVIDERS: ATTEND Obstetrics & Gynecology
DX: Z12.4 Encounter for screening for malignant neoplasm of cervix (principal)

== ENCOUNTER → 2022-11-01 | Outpatient (REF) | payer OTHER | LOC: M WUC 11:13 | PROVIDERS: ATTEND Physician Assistant | DX: L02.213 Cutaneous abscess of chest wall (principal) ==

== ENCOUNTER → 2024-02-27 | Outpatient (REF) | payer OTHER ==
[~2024-02-27] MED LIST changes: +ONDA-282 PO; -ONDA4TAB6 PO
[2024-02-27 19:12] LABS: BASO % 0.4 % (0.0-1.0); EOS # 0.1 10^3/uL (0.0-0.5); EOS % 0.9 % (0.0-3.0); HEMATOCRIT 37.7 % (36.0-47.0); HEMOGLOBIN 12.5 g/dl (12.0-15.5); LYMPH # 2.8 10^3/uL (1.5-5.0); LYMPH % 35.6 % (24.0-44.0); MEAN CORPUSCULAR HEMOGLOBIN 34.1 pg (27.0-33.0); MEAN CORPUSCULAR HGB CONC 33.2 g/dl (32.0-36.5); MEAN CORPUSCULAR VOLUME 102.7 fl (80.0-96.0); MONO # 0.3 10^3/uL (0.0-0.8); MONO % 4.1 % (2.0-8.0); NEUTROPHILS # 4.6 10^3/uL (1.5-8.5); NEUTROPHILS % 58.6 % (36.0-66.0); PLATELET COUNT, AUTOMATED 260 10^3/uL (150-450); RED BLOOD COUNT 3.67 10^6/uL (4.00-5.40); WHITE BLOOD COUNT 7.9 10^3/uL (4.0-10.0)
[2024-02-27 19:15] LABS: HEMOGLOBIN A1c 4.7 % (4.0-6.0)
[2024-02-27 19:20] LABS: ALBUMIN 4.7 G/DL (3.2-5.2); ALKALINE PHOSPHATASE 64 U/L (46-116); ALT/SGPT 26 U/L (7.0-40); AST/SGOT 16 U/L (<34); BILIRUBIN,TOTAL 0.7 MG/DL (0.3-1.2); BLOOD UREA NITROGEN 10 MG/DL (9-23); CALCIUM LEVEL 9.5 MG/DL (8.5-10.1); CARBON DIOXIDE LEVEL 28 MMOL/L (20-31); CHLORIDE LEVEL 101 MMOL/L (98-107); CHOLESTEROL LEVEL 184 MG/DL (<200); CHOLESTEROL RISK RATIO 2.02 (<5); CREATININE FOR GFR 0.63 MG/DL (0.55-1.30); FOLLICLE STIMULATING HORMONE 36.1 mIU/ML; GLOMERULAR FILTRATION RATE > 60.0 (>58); GLUCOSE, FASTING 76 MG/DL (60-100); LDL CHOLESTEROL 74.2 MG/DL (<100); LUTEINIZING HORMONE 64.5 mIU/ML; POTASSIUM SERUM 4.1 MMOL/L (3.5-5.1); SODIUM LEVEL 134 MMOL/L (136-145); TOTAL PROTEIN 7.9 G/DL (5.7-8.2); TRIGLYCERIDES LEVEL 94 MG/DL (<150)
[2024-02-27 19:21] LABS: THYROID STIMULATING HORMONE 2.848 uIU/ML (0.55-4.78)
== END ==
LOC: M LAB REF 17:32
PROVIDERS: ATTEND Pediatrics
DX: Z68.25 Body mass index [BMI] 25.0-25.9, adult (principal); E66.3 Overweight; N92.6 Irregular menstruation, unspecified

== ENCOUNTER → 2024-03-06 | Outpatient (CLI) | payer OTHER | LOC: M CARPUL 14:17 | PROVIDERS: ATTEND Pediatrics | DX: R01.1 Cardiac murmur, unspecified (principal) ==

== ENCOUNTER → 2024-06-15 | Outpatient (REF) | payer OTHER | LOC: M SFHCWAGY 12:52 | PROVIDERS: ATTEND Obstetrics & Gynecology | DX: Z12.4 Encounter for screening for malignant neoplasm of cervix (principal); A59.01 Trichomonal vulvovaginitis ==

== ENCOUNTER → 2024-11-19 | Outpatient (CLI) | payer OTHER | LOC: M SOG 08:28 | PROVIDERS: ATTEND Orthopaedic Surgery | DX: M25.511 Pain in right shoulder (principal); M25.532 Pain in left wrist ==